=== PATIENT | female | born 1970 | race Caucasian/White ===

== ENCOUNTER 2019-07-20 14:19 | Outpatient (CLI) | payer OTHER, SELFPAY ==
--- NOTE | ~2019-07-20 | XR_ITS ---
EXAMINATION: XR hand LT min 3V EXAM DATE: 07/20/2019 14:40 INDICATION: Left hand, metacarpal pain, bruising. Initial encounter. States injury 2 weeks ago. TECHNIQUE: Left hand frontal, lateral and oblique projections obtained and reviewed. There is no phoebe or study for comparison. FINDINGS: No periosteal reaction to suggest subacute fracture. There are no acute left hand fracture s or dislocations identified. There is no subcutaneous gas. The soft tissue is unremarkable. Ulna r minus variance. IMPRESSION: No acute osseous findings. Reviewed, dictated and finalized at location G. IMPRESSION: No acute osseous findings.
== END 2019-07-20 14:20 | disposition home or self-care (01) ==
PROVIDERS: PCP Family Medicine; Visit Provider Physician Assistant
DX: M79.642 Pain in left hand (principal); S69.92XA Unspecified injury of left wrist, hand and finger(s), initial encounter
CPT/HCPCS: 73130

== ENCOUNTER 2019-11-13 11:39 | Outpatient (CLI) | payer OTHER, SELFPAY ==
--- NOTE | ~2019-11-13 | MM_ITS ---
EXAMINATION: MM screening ciara BI w rosemary HISTORY: Screening mammogram TECHNIQUE: Craniocaudal and mediolateral oblique 3-D tomosynthesis images were obtained and synthetic 2-D images were generated. Bilateral rotated lateral cc views. ..CAD analysis was submitted and inte rpreted. COMPARISON: 09/12/2018, 08/06/2017, 07/24/2016 bilateral digital screening mammogram examinations BREAST PARENCHYMAL COMPOSITION: The breasts are heterogeneously dense, which may obscure small masses . FINDINGS: There is no evidence of suspicious mass, calcification, or architectural distortion to sugg est malignancy in either breast. There has been no suspicious interval change. IMPRESSION: 1. No mammographic evidence of malignancy. 2. Recommend routine screening mammography in one year. BI-RADS Category 1: Negative Reviewed, dictated and finalized at location B.
== END 2019-11-13 11:40 | disposition home or self-care (01) ==
LOC: ANHIMG 11:42
PROVIDERS: PCP Family Medicine; Visit Provider Obstetrics & Gynecology
DX: Z12.31 Encounter for screening mammogram for malignant neoplasm of breast (principal)
CPT/HCPCS: 77063; 77067

== ENCOUNTER → 2020-07-25 10:55 | Outpatient (CLI) | payer OTHER, SELFPAY ==
--- NOTE | ~2020-07-25 | XR_ITS ---
XR foot RT min 3V DATE: 07/25/2020 11:19 INDICATION: Right foot pain TECHNIQUE: 4 views COMPARISON: None FINDINGS: There is mild osteoarthritis at the first metatarsophalangeal joint. No fracture, dislocation, periosteal reaction or bone destruction. IMPRESSION: Mild osteoarthritis at first metatarsophalangeal joint Reviewed, dictated and finalized at location A.
== END ==
PROVIDERS: PCP Family Medicine; Visit Provider Physician Assistant
DX: M79.671 Pain in right foot (principal); M19.071 Primary osteoarthritis, right ankle and foot
CPT/HCPCS: 73630

== ENCOUNTER 2020-11-29 07:06 | Outpatient (CLI) | payer OTHER, SELFPAY ==
--- NOTE | ~2020-11-29 | MM_ITS ---
EXAMINATION: MM screening ciara BI w rosemary HISTORY: Screening mammogram TECHNIQUE: Craniocaudal and mediolateral oblique 3-D tomosynthesis images were obtained and synthetic 2-D images were generated. CAD analysis was submitted and interpreted. COMPARISON: 11/13/2019, 09/12/2018, 08/06/2017, 07/24/2016, 07/12/2015 bilateral digital screening mammogra m examinations BREAST PARENCHYMAL COMPOSITION: The breasts are heterogeneously dense, which may obscure small masses . FINDINGS: There is asymmetry in the mid and outer upper right breast. Diagnostic right mammogram is r ecommended, with ultrasound. Otherwise there is no evidence of suspicious mass, calcification, or architectural distortion to sugg est malignancy in either breast. There has been no other suspicious interval change. IMPRESSION: 1. Asymmetry in the upper mid to outer right breast 2. Diagnostic right mammogram and right breast ultrasound examination are recommended BI-RADS Category 0: Incomplete: Needs additional imaging evaluation. Reviewed, dictated and finalized at location A. IMPRESSION: 1. Asymmetry in the upper mid to outer right breast 2. Diagnostic right mammogram and right breast ultrasound examination are recom mended BI-RADS Category 0: Incomplete: Needs additional imaging evaluation.
== END 2020-11-29 07:07 | disposition home or self-care (01) ==
LOC: ANHIMG 07:15
PROVIDERS: PCP Family Medicine; Visit Provider Obstetrics & Gynecology
DX: Z12.31 Encounter for screening mammogram for malignant neoplasm of breast (principal); R92.8 Other abnormal and inconclusive findings on diagnostic imaging of breast
CPT/HCPCS: 77063; 77067

== ENCOUNTER 2020-12-22 11:34 | Outpatient (CLI) | payer OTHER, SELFPAY ==
--- NOTE | ~2020-12-22 | MMUS_ITS ---
EXAMINATION: MM diagnostic ciara RT w rosemary, US breast RT complete HISTORY: Right breast mammographic asymmetry TECHNIQUE: Additional 3-D tomosynthesis images of the right breast were performed and synthetic 2-D i mages were generated. CAD analysis was submitted and interpreted. High resolution complete right ana st ultrasound including all 4 quadrants and subareolar are was performed. COMPARISON: 11/29/2020 bilateral screening mammogram FINDINGS: MAMMOGRAPHIC FINDINGS: No reproducible mass or architectural distortion, malignant calcification, skin thickening or retract ion is detected. ULTRASOUND: No suspicious mass or shadowing or other significant sonographic finding of the right breast is detec dinora. IMPRESSION: 1. No mammographic evidence of malignancy 2. Routine mammographic screening is recommended. BI-RADS Category 1: Negative Reviewed, dictated and finalized at location A. P MIXER IMPRESSION: 1. No mammographic evidence of malignancy 2. Routine mammographic screening is recommended. BI-RADS Category 1: Negative
== END 2020-12-22 11:35 | disposition home or self-care (01) ==
LOC: ANHIMG 11:35
PROVIDERS: PCP Family Medicine; Visit Provider Obstetrics & Gynecology
DX: R92.2 Inconclusive mammogram (principal)
CPT/HCPCS: 76641; 77061; 77065; G0279

== ENCOUNTER 2022-01-20 10:46 | Outpatient (CLI) | payer OTHER, SELFPAY ==
--- NOTE | ~2022-01-20 | MM_ITS ---
EXAMINATION: MM screening ciara BI w rosemary HISTORY: Screening TECHNIQUE: Craniocaudal and mediolateral oblique 3-D tomosynthesis images were obtained and synthetic 2-D images were generated. CAD analysis was submitted and interpreted. COMPARISON: Comparison to multiple prior studies sequentially, with oldest reviewed study dated 07/24. BREAST PARENCHYMAL COMPOSITION: The breasts are heterogeneously dense, which may obscure small masses . FINDINGS: There is no evidence of suspicious mass, calcification, or architectural distortion to sugg est malignancy in either breast. There has been no suspicious interval change. IMPRESSION: 1. No mammographic evidence of malignancy. 2. Recommend routine screening mammography in one year. BI-RADS Category 1: Negative Reviewed, dictated and finalized at location B. 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
== END 2022-01-20 10:47 | disposition home or self-care (01) ==
LOC: ANHIMG 10:49
PROVIDERS: PCP Family Medicine; Visit Provider Family Medicine
DX: Z12.31 Encounter for screening mammogram for malignant neoplasm of breast (principal)
CPT/HCPCS: 77063; 77067

== ENCOUNTER → 2022-05-03 12:54 | Outpatient (CLI) | payer OTHER, SELFPAY ==
--- NOTE | ~2022-05-03 | US_ITS ---
EXAMINATION: US pelvic complete w TV DATE: 05/03/2022 13:30 INDICATION: Postmenopausal bleeding TECHNIQUE: Multiple transabdominal and endovaginal sonographic images of the pelvis were obtained. COMPARISON: None. FINDINGS: The uterus measures 7.2 x 3.5 x 4.8 cm. A 9 mm mildly hyperechoic area of the uterine fundu s has the appearance of an intramural fibroid. The endometrial complex measures 5 mm. The left ovary is not visualized however no left adnexal abnormality is seen. The right ovary measures 2.5 x 0.9 x 1 .8 cm. There is normal vascular flow in the right ovary. There is no free fluid in the pelvis. IMPRESSION: 1. No sonographic correlate for the patient's symptoms. Reviewed, dictated and finalized at location L.
== END ==
PROVIDERS: PCP Family Medicine; Visit Provider Obstetrics & Gynecology
DX: N95.0 Postmenopausal bleeding (principal)
CPT/HCPCS: 76830; 76856

== ENCOUNTER 2023-05-16 07:26 | Outpatient (CLI) | payer OTHER, SELFPAY ==
--- NOTE | ~2023-05-16 | MM_ITS ---
EXAMINATION: MM screening ciara BI w rosemary HISTORY: Screening TECHNIQUE: Craniocaudal and mediolateral oblique 3-D tomosynthesis images were obtained and synthetic 2-D images were generated. CAD analysis was submitted and interpreted. COMPARISON: Comparison to multiple prior studies sequentially, with oldest reviewed study dated 08/06. BREAST PARENCHYMAL COMPOSITION: Dense: The breasts are heterogeneously dense, which may obscure small masses FINDINGS: There is no evidence of suspicious mass, calcification, or architectural distortion to sugg est malignancy in either breast. There has been no suspicious interval change. IMPRESSION: 1. No mammographic evidence of malignancy. 2. Recommend routine screening mammography in one year. BI-RADS Category 1: Negative Reviewed, dictated and finalized at location A.
== END 2023-05-16 07:27 | disposition home or self-care (01) ==
PROVIDERS: PCP Family Medicine; Visit Provider Obstetrics & Gynecology
DX: Z12.31 Encounter for screening mammogram for malignant neoplasm of breast (principal)
CPT/HCPCS: 77063; 77067

== ENCOUNTER 2024-05-19 07:26 | Outpatient (CLI) | payer OTHER, SELFPAY ==
--- NOTE | ~2024-05-19 | MM_ITS ---
EXAMINATION: MM screening ciara BI w rosemary HISTORY: Screening TECHNIQUE: Craniocaudal and mediolateral oblique 3-D tomosynthesis images were obtained and synthetic 2-D images were generated. CAD analysis was submitted and interpreted. COMPARISON: Comparison to multiple prior studies sequentially, with oldest reviewed study dated 03/2018. BREAST PARENCHYMAL COMPOSITION: Dense: The breasts are heterogeneously dense, which may obscure small masses FINDINGS: There is no evidence of suspicious mass, calcification, or architectural distortion to sugg est malignancy in either breast. There has been no suspicious interval change. IMPRESSION: 1. No mammographic evidence of malignancy. 2. Recommend routine screening mammography in one year. BI-RADS Category 1: Negative Reviewed, dictated and finalized at location A.
--- OUTSIDE RECORDS SUMMARY | 2024-05-19 07:30 | XMS_ITS | Data Portability ---
Author Organization [facility] Address [address] [place] [address] Assessment No assessment recorded. Plan of Treatment Reminders Order Date Submit Date Provider Last Modified By Organization Details Last Modified Time Details Appointments None recorded. Lab estradiol , serum 2017 [facility], [address], [place], [address], 8 07:58:07 FSH (follicle -stimulat ing hormone), serum 2017 [facility], [address], [place], [address], 8 07:17:18 testoster one, total, serum 2017 [facility], [address], [place], [address], 8 07:17:17 progester one, serum 2017 [facility], [address], [place], [address], 8 07:17:18 pap, IG + HPV, cervical 2017 [facility], [address], [address], [place], [address], 8 14:13:36 urinalysi s, dipstick 2017 [email or web address] In-Office Order, Internal Use Only DO Not Attach Compendium DO Not Attach Compendium, Do Not Delete/merge, [id number] 8 16:06:37 Referral None recorded. Procedures None recorded. Surgeries None recorded. Imaging MAMMO, screening , bilateral 2017 [facility], [address], [address], [address], 9 10:52:14 Medication Orders Duavee 0.45 mg-20 mg tablet 2017 [facility] [place], [address], 8 15:41:55 multivita min tablet 2017 INTERFACE [facility] [address] [place], [address], 8 15:45:26 Calcium with Vitamin D 600 mg-10 mcg (400 unit) tablet 2017 INTERFACE [facility] [address] [place], [address], 8 15:45:46 Patient TargetsNo targets recorded. Patient Instructions Encounter Date Encounter Id Patient Instructions Last Modified By Organization Details Last Modified Time 12/05/2017 [id number] mammogram: about this test max Not available 12/05/2017 16:06:37 Pap done today. Will check hormones for c/o hair loss. Start Duavee for hot flashes. [email or web address] Not available 12/05/2017 17:06:34 Reason for Referral None Reported. Results Created Date Observation Date Name Description Value Unit Range Abnormal Flag Note LastModifiedBy Organization Detail LastModifiedTime 12/06/19 18 12/05/2017 urina lysis , dipst ick Leukocytes Negati ve Not Available In-Office Order Internal Use Only DO Not Attach Compendium DO Not Attach Compendium, Do Not Delete/merge, [id number] 12/05/2017 15:54:56 12/06/19 18 12/05/2017 urina lysis , dipst ick Nitrite negati ve Not Available In-Office Order Internal Use Only DO Not Attach Compendium DO Not Attach Compendium, Do Not Delete/merge, [id number] 12/05/2017 15:54:56 12/06/19 18 12/05/2017 urina lysis , dipst ick Urobilinogen .2 Not Available In-Of fice Order Internal Use Only DO Not Attach Compendium DO Not Attach Compendium, Do Not Delete/merge, [id number] 12/05/2017 15:54:56 12/06/19 18 12/05/2017 urina lysis , dipst ick Protein Negati ve Not Available In-Office Order Internal Use Only DO Not Attach Compendium DO Not Attach Compendium, Do Not Delete/merge, [id number] 12/05/2017 15:54:56 12/06/19 18 12/05/2017 urina lysis , dipst ick pH 6.0 Not Available In-Office Order Internal Use Only DO Not Attach Compendium DO Not Attach Compendium, Do Not Delete/merge, [id number] 12/05/2017 15:54:56 12/06/19 18 12/05/2017 urina lysis , dipst ick Blood Negati ve Not Available In-Office Order Internal Use Only DO Not Attach Compendium DO Not Attach Compendium, Do Not Delete/merge, [id number] 12/05/2017 15:54:56 12/06/19 18 12/05/2017 urina lysis , dipst ick Specific [place] 1.005 Not Available In-Off ice Order Internal Use Only DO Not Attach Compendium DO Not Attach Compendium, Do Not Delete/merge, [id number] 12/05/2017 15:54:56 12/06/19 18 12/05/2017 urina lysis , dipst ick Ketone Negati ve Not Available In-Office Order Internal Use Only DO Not Attach Compendium DO Not Attach Compendium, Do Not Delete/merge, [id number] 12/05/2017 15:54:56 12/06/19 18 12/05/2017 urina lysis , dipst ick Bilirubin Negati ve Not Available In-Office Order Internal Use Only DO Not Attach Compendium DO Not Attach Compendium, Do Not Delete/merge, [id number] 12/05/2017 15:54:56 12/06/19 18 12/05/2017 urina lysis , dipst ick Glucose Negati ve Not Available In-Office Order Internal Use Only DO Not Attach Compendium DO Not Attach Compendium, Do Not Delete/merge, [id number] 12/05/2017 15:54:56 12/06/19 18 12/06/2017 testo stero ne, total , serum testosterone , serum 9 NG/dL 8-48 Not Available [facility] ([facility]) [address] [facility], [place], [address], 12/06/2017 07:17:17 12/06/19 18 12/06/2017 FSH (foll icle- stimu latin g hormo ne), serum FSH 24.7 mIU/m L Adult Femal e: Folli cular phase 3.5 - 12.5 Ovula tion phase 4.7 - 21.5 Lutea l phase 1.7 - 7.7 Postm enopa usal 25.8 - 134.8 Not Available [facility] ([facility]) [address] [facility], [place], [address], 12/06/2017 07:17:18 12/06/19 18 12/06/2017 proge stero ne, serum progesterone 0.3 NG/mL Folli cular phase 0.1 - 0.9 Lutea l phase 1.8 - 23.9 Ovula tion phase 0.1 - 12.0 Pregn ant First trime ster 11.0 - 44.3 Secon d trime ster 25.4 - 83.3 Third trime ster 58.7 - 214.0 Postm enopa usal 0.0 - 0.1 Not Available [facility] ([facility]) [address] [facility], [place], [address], 12/06/2017 07:17:18 12/06/19 18 12/09/2017 pap, IG + HPV, cervi lj HPV aptima Negati ve negati ve This test detec ts fourt een high- risk HPV types (16/1 8/31/ 33/35 /39/4 5/ 51/52 /56/5 8/59/ 66/68 ) witho ut diffe renti ation . Not Available [facility] ([facility]) [address] [place], [address], 12/10/2017 14:13:36 12/06/19 18 12/10/2017 pap, IG + HPV, cervi lj diagnosis: Nikia carpenter abnormal EPITH ELIAL CELL ABNOR MALIT Y. ATYPI LJ SQUAM OUS CELLS OF UNDET ERMIN ED SIGNI FICAN CE. Not Available [facility] ([facility]) [address] [place], [address], 12/10/2017 14:13:36 12/06/19 18 12/10/2017 pap, IG + HPV, cervi lj recommendati on: Nikia carpenter abnormal Sugge st follo w up as clini eloy appro priat e. Not Available [facility] ([facility]) [address] [facility], [place], [address], 12/10/2017 14:13:36 12/06/19 18 12/10/2017 pap, IG + HPV, cervi lj specimen adequacy: Nikia carpenter Satis facto ry for evalu ation . Endoc ervic al and/o r squam ous metap lasti c cells (endo cervi lj compo nent) are prese nt. Not Available [facility] ([facility]) [address] [facility], [place], [address], 12/10/2017 14:13:36 12/06/19 18 12/10/2017 pap, IG + HPV, cervi lj clinician provided ICD10: Nikia carpenter Z01.4 19 Z20.2 Not Available [facility] ([facility]) [address] [place], [address], 12/10/2017 14:13:36 12/06/19 18 12/10/2017 pap, IG + HPV, cervi lj performed by: Nikia Novoa ws, Cytot echno logis t (ASCP ) Not Available [facility] ([facility]) [address] [place], [address], 12/10/2017 14:13:36 12/06/19 18 12/10/2017 pap, IG + HPV, cervi lj electronical ly signed by: Nikia erickson MD, Patho logis t Not Available [facility] ([facility]) [address] [place], [address], 12/10/2017 14:13:36 12/06/19 18 12/10/2017 pap, IG + HPV, cervi lj . . Not Available [facility] ([facility]) [address] [place], [address], 12/10/2017 14:13:36 12/06/19 18 12/10/2017 pap, IG + HPV, cervi lj pathologist provided ICD10: Nikia carpenter R87.6 10 Not Available [facility] ([facility]) [address] [place], [address], 12/10/2017 14:13:36 12/06/19 18 12/10/2017 pap, IG + HPV, cervi lj note: Nikia carpenter The Pap smear is a scree randal test desig ruben to aid in the detec tion of arya ligna nt and malig nant condi tions of the uteri ne cervi x. It is not a diagn ostic proce dure and shoul d not be used as the sole means of detec ting cervi lj cance r. Both false -posi tive and false -nega tive repor ts do occur . Not Available [facility] ([facility]) [address] [place], [address], 12/10/2017 14:13:36 12/06/19 18 12/10/2017 pap, IG + HPV, cervi lj test methodology: Nikia carpenter This liqui d based ThinP rep(R ) pap test was scree ruben with the use of an image guide d syste m. Not Available [facility] ([facility]) [address], [place], [address], 12/10/2017 14:13:36 12/31/19 18 12/31/2017 estra diol, serum estradiol 618 pg/mL high Refer ence Range Folli cular Phase : 19-14 4 Mid-C ycle: 64-35 7 Lutea l Phase : 56-21 4 Postm enopa usal: < or = 31 Refer ence range estab lishe d on post- puber mary patie nt popul ation . No pre-p ubert al refer ence range estab lishe d using this assay . For any patie nts for whom low Estra diol level s are antic ipate d (e.g. males , pre-p ubert al child jose and hypog onada l/pos t-men opaus al femal es), the [facility] t[facility] Estra diol, Ultra sensi tive, LCMSM S assay is recom thania d (orde r code 57164 ). Pleas e note: patie nts being treat ed with the drug fulve stran t (Fasl odex( R)) have demon strat ed signi fican t inter feren ce in immun oassa y metho ds for estra diol measu remen t. The cross react ivity could lead to false ly eleva dinora estra diol test resul ts leadi ng to an inapp ropri ate clini lj asses sment of estro gen statu s. [facility] order code [id number] -Estr adiol , Ultra sensi tive LC/MS /MS demon strat es negli gible cross react ivity with fulve stran t. Not Available [facility] [address], [place], [address], 12/31/2017 07:58:07 09/13/19 19 09/12/2018 MAMMO , scree randal, bilat eral No observ ation record ed. [facility] [address], [place], [address], 09/14/2018 09:12:05 12/14/19 20 11/13/2019 MAMMO , scree randal, bilat eral No observ ation record ed. [facility] Not Available 2019 17:21:12 11/30/19 21 11/29/2020 MAMMO , scree randal, bilat eral No observ ation record ed. [address] [place] [address], [address], 12/05/2020 12:16:12 12/23/19 21 12/22/2020 MAMMO , diagn ostic , digit al, unila teral No observ ation record ed. [address], [address], 01/05/2021 12:34:01 Result Notes None recorded. Problems No Known Problems Procedures Surgical History Date Name Laterality Status Provider Name and Address Organization Details Recorded Time 8 Most Recent Mammogram completed Jessica Arora MA [facility] 12/05/2017 15:13:19 4 Date of Last Pap Smear completed FRANK Chan [facility] 12/05/2017 15:11:35 9 Ovarian Cystectomy completed FRANK Chan [facility] 12/05/2017 15:20:39 Imaging Results Imaging Date Name Status LastModified by [facility] Details LastModified Time 09/12/2018 MAMMO, screening, bilateral completed [facility]) [address] [place] [address], [address], 09/14/2018 09:12:05 11/13/2019 MAMMO, screening, bilateral completed [facility] Information not available 12/14/2019 17:21:12 11/29/2020 MAMMO, screening, bilateral completed [address], [address], 12/05/2020 12:16:12 12/22/2020 MAMMO, diagnostic, digital, unilateral completed [address] [place], [address], 01/05/2021 12:34:01 Procedure Notes None recorded. Medical Equipment None Reported. Allergies No known drug allergies Medications Name Sig Start Date Stop Date Status Note LastModified by Organization Details LastModified Time multivitamin tablet Take 1 tablet every day by oral route. 2017 active Not Available Not Available Not Avai lable valacyclovir 1 gram tablet active Not Available Not Available Not Available estradiol-noret hindrone acet 1 mg-0.5 mg tablet TAKE 1 TABLET BY MOUTH ONCE DAILY active Not Available Not Available No t Available Euthyrox 100 mcg tablet active Not Available Not Available N ot Available amoxicillin 875 mg tablet active Not Available Not Available No t Available ciprofloxacin 0.3 % eye drops active Not Available Not Availa ble Not Available levothyroxine 112 mcg tablet Take 1 tablet every day by oral route. active Not Available Not Available No t Available estradiol-noret hindrone acet 0.5 mg-0.1 mg tablet active Not Available Not Available Not Available Calcium with Vitamin D 600 mg-10 mcg (400 unit) tablet Take 1 tablet twice a day by oral route. 2017 active Not Available Not Available Not Avai lable Duavee 0.45 mg-20 mg tablet TAKE 1 TABLET BY MOUTH ONCE DAILY active Not Available Not Available No t Available Vitals Date Recorded Body height Body mass index (BMI) Body weight Systolic blood pressure Diastolic blood pressure Provider Name and Address Organization Details Last Updated DateTime 12/05/2017 167.64 cm 7.9 kg/m2 28812.03 g 116 mm[Hg] 62 mm[Hg] Jessica Arora MA [facility] 8 15:15:46 Social History Question Answer Notes LastModified by Organizat ion Details LastModified Time Tobacco Smoking Status Never Smoker Not Available [facility] 12/15/2019 03:43:26 Do You Have An Advance Directive? No [id number] Information not available 12/15/2019 What Is Your Level Of Alcohol Consumption? Occasional [id number] Information not available 12/15/2019 Is Blood Transfusion Acceptable In An Emergency? No [id number] Information not available 12/15/2019 What Is Your Level Of Caffeine Consumption? Moderate [id number] Information not available 12/15/2019 How Much Tobacco Do You Chew? None [id number] Information not available 12/15/2019 Are You Currently Employed? Yes [id number] Information not available 12/15/2019 What Type Of Diet Are You Following? REGULAR [id number] Information not available 12/15/2019 Which Illicit Or Recreational Drugs Have You Used? 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 With Others Information not available 12/05/2017 What Was The Date Of Your Most Recent Tobacco Screening? 12/05/2017 [id number] Information not available 12/15/2019 How Many Children Do You Have? 3 [id number] Information not available 12/15/2019 Performs Monthly Self-breast Exam? No Pt Given Info On Self Breast Exams, Cb-rma Information not available 12/05/2017 Do You Use Protection During Sex? No [id number] Information not available 12/15/2019 What Is Your Relationship Status? [id number] Information not available 12/15/2019 Seat Belts Used Routinely Yes Information not available 12/05/2017 Are You Sexually Active? Yes [id number] Information not available 12/15/2019 General Stress Level High [email or web address] Information not available 12/05/2017 Do You Use Sunscreen Routinely? Yes [id number] Information not available 12/15/2019 Sex: Unknown Functional Status Question Answer Note LastModified by Organizat ion Details LastModified Time What is your exercise level? Occasional [id number] Information not available 12/15/2019 Mental Status None recorded. Family History Relationship Description Onset Age of this Age Resolved Age Notes LastModified by Organization Details LastModified Time Paternal Aunt Malignant tumor of breast 38 Not available 12/05 15:16:42 Father Diabetes mellitus HTN, Type II diabet ic, cb-rma Not available 12/05/2017 15:17:23 Mother Rheumatoid arthritis HTN Not available 12/05 15:17:53 Medical History Condition Response High Blood Pressure N Breast Cancer N Kidney or Bladder Problems N Thyroid Problems Y Depression N Blood Clots N Lung Disease N GI Problems N Breast Problem N Eating Disorder N Anemia N Anesthesia Complications N Headaches/Migraines N Anxiety Disorder N Diabetes N Ovarian Cancer N Muscle, Joint, or Bone Problems N Blood Transfusions N Seizures/Epilepsy N Polyps N Infertility N Asthma N Endometriosis N High Cholesterol Y Hepatitis N Liver Disease N Heart Disease N Pre-Eclampsia N Osteoporosis N Gynecological History Statement/Question Response Abnormal Pap N Flow Moderate STIs/STDs N HPV Vaccine N Duration of Flow (days) 14 Most Recent Mammogram 08/06/2017 Age at Menarche 13 Current Control Method Partner Vas ectomy Age at First Child 25 Frequency of Cycle (Q days) 36 Sexually Active? Y Menses Monthly Y Date of Last Pap Smear 02/11/2013 Sexual Problems? N LMP Approximate Obstetrics History GPAL:G 3 P 2 1 0 3 Type Value Multiple Births 0 Full Term 2 Induced 0 Spontaneous 0 Premature 1 Living 3 Ectopics 0 Total 3 Past Encounters Encounter ID Performer Location Encounter Start Date Encounter Closed Date Diagnosis/Indication Diagnosis SNOMED-CT Code Diagnosis ICD10 Code Diagnosis Note [id number] Domingo Francis Myranda (ENDOSCOPY TECHNICIAN) [address] [place] [phone] 12/05/2017 14:49:14 12/05/2017 17:27:11 Gynecologic examination 01471786 Z01.419 Screening mammography 24 139193 Z12.31 Exposure t o sexually transmissible disorder 047327582 Z20.2 Perimenopausal state 516 8876575 68841 Z78.0 Health Concerns Section Related Observation LastModified by Organization Detai ls LastModified Time None Recorded Concern Status LastModified by Organization Details LastModified Time None Recorded Advance Directives Directive N: Payers Encounter Date Sequence Insurance Name Policy Number Policy Ivan Covered Member ID Ivan Member ID Guarantor Name 12/05/2017 1 [employer] [id number] Sheba Pleitez [id number] Sheba Pleitez Notes Date Note Type Note Provider Name and Address Organization Details Recorded Time 12/05/2017 text/html Annual GYNReport ed bypatient.History: no gynecologic complaints Menstrual cycle:Normal menses Urinary symptoms:No hematuria; No incontinence Vulva:No genital lesion Vagina:Normal vaginal discharge Breast:No breast pain; No breast lump; No nipple discharge Current Contraception:Part ner had vasectomy Sexual complaints:No sexual complaints; No pain during intercourse; Normal libido Menopausal Symptoms:Normal vaginal lubrication;Hot flashes; +hair loss Psychological symptoms:No depression; No anxiety; No PMDD Preventive measures:Encourage self breast examination; Encourage regular exercise; Encourage no tobacco use; Encourage regular mammograms starting age 40; Followed with Q3 year pap smear and high risk HPV typing 47 yo CF here for annual WWE. No h/o abnormal paps. She is doing well with c/o hair loss. Had TSH checked recently. Domingo garza, [place] - [facility] 12/05/2017 17:07:35 OBGyn Episode No OBEpisode recorded.
== END 2024-05-19 07:27 | disposition home or self-care (01) ==
LOC: ANHIMG 07:28
PROVIDERS: PCP Family Medicine; Visit Provider Obstetrics & Gynecology
DX: Z12.31 Encounter for screening mammogram for malignant neoplasm of breast (principal)
CPT/HCPCS: 77063; 77067

== ENCOUNTER 2024-07-24 07:18 | Outpatient (CLI) | payer OTHER, SELFPAY ==
--- NOTE | ~2024-07-24 | DEXA_ITS ---
Bone Density Report Name: NICOLAS GUIDO Age: 54 Sex: Female Ethnicity: White Date of : 1970 Indication: postmenopausal; screening for osteoporosis; Referring Provider: Kvng Erickson Study: Bone densitometry was performed. Exam Date: July 24, 2024 Accession number: [id number] Bone Density: Region BMD T-score Z-score Classification AP Spine(L1-L4) 0.955 -0.8 0.3 Normal Femoral Neck (Left) 0.729 -1.1 0.0 Osteopenia Total Hip (Left) 0.962 0.2 0.9 Normal Femoral Neck (Right) 0.790 -0.5 0.6 Normal Total Hip (Right) 0.927 -0.1 0.6 Normal Femoral Neck Mean 0.759 -0.8 0.3 Normal Total Hip Mean 0.944 0.0 0.8 Normal World Health Organization criteria for BMD impression classify patients as: Normal (T-score at or above -1.0), Osteopenia (T-score between -1.0 and -2.5), or Osteoporosis (T-score at or below -2.5). Clinical Information Provided by Patient: Has used the following medications: Vitamin D, Calcium Patient maximum height was 66 Menopause Age: 52 Drinks caffeinated beverages Onset of menses at age 10 Number of children 2 Impression: The patient has low bone mass, based on the Left Femoral Neck T-score. Discussion: BONE DENSITY IS LOW AT ONE OR MORE SKELETAL SITES. This patient's lowest T-score is low at one or more skeletal sites. It meets the World Health Organization's (WHO) criteria for ?low bone mass? (T-score between -1.0 and -2.5). The patient's 10-year risk of fracture as calculated by FRAX is less than the threshold where pharmacological therapy is recommended by the National Osteoporosis Foundation (NOF). However, all treatment decisions require clinical judgment and consideration of individual patient factors, including patient preferences, comorbidities, previous drug use, risk factors not captured in the FRAX model (e.g., frailty, falls, vitamin D deficiency, increased bone turnover, interval significant decline in bone density) and possible under or overestimation of fracture risk by FRAX. The patient should follow a healthful lifestyle (good nutrition with adequate calcium and vitamin D, and appropriate weight-bearing exercise). Follow-Up: Consider repeating this study in 2 to 3 years to reassess this patient's status, or sooner if there is some new clinical indication. Reported by: JESSICA on 07/24/2024 7:36:00 AM. Reviewed, dictated and finalized at location A.
--- OUTSIDE RECORDS SUMMARY | 2024-07-24 07:21 | XMS_ITS | Data Portability ---
Author Organization [facility] Address [address] [place] [address] Assessment No assessment recorded. Plan of Treatment Reminders Order Date Submit Date Provider Last Modified By Organization Details Last Modified Time Details Appointments None recorded. Lab estradiol , serum 2017 [facility], [address], [place], [address], 8 07:58:07 FSH (follicle -stimulat ing hormone), serum 2017 [facility], [address], [place], [address], 8 07:17:18 testoster one, total, serum 2017 [facility], [address], [place], [address], 8 07:17:17 progester one, serum 2017 [facility], [address], [place], [address], 8 07:17:18 pap, IG + HPV, cervical 2017 [facility], [address], [address], [place], [address], 8 14:13:36 urinalysi s, dipstick 2017 [facility] In-Office Order, Internal Use Only DO Not Attach Compendium DO Not Attach Compendium, Do Not Delete/merge, [id number] 8 16:06:37 Referral None recorded. Procedures None recorded. Surgeries None recorded. Imaging MAMMO, screening , bilateral 2017 [facility], [address], [address], [address], 9 10:52:14 Medication Orders Duavee 0.45 mg-20 mg tablet 2017 [facility] [address] [place], [address], 8 15:41:55 multivita min tablet 2017 [facility] [address] [place], [address], 8 15:45:26 Calcium with Vitamin D 600 mg-10 mcg (400 unit) tablet 2017 [facility] [address] [place], [address], 8 15:45:46 Patient TargetsNo targets recorded. Patient Instructions Encounter Date Encounter Id Patient Instructions Last Modified By Organization Details Last Modified Time 12/05/2017 [id number] mammogram: about this test max Not available [...] DO Not Attach Compendium, Do Not Delete/merge, [id number] 12/05/2017 15:54:56 12/06/19 18 12/05/2017 urina lysis , dipst ick Nitrite negati ve Not Available In-Office Order Internal Use Only DO Not Attach Compendium DO Not Attach Compendium, Do Not Delete/merge, [id number] 12/05/2017 15:54:56 12/06/19 18 12/05/2017 urina lysis , dipst ick Urobilinogen .2 Not Available In-Of fice Order Internal Use Only DO Not Attach Compendium DO Not Attach Compendium, Do Not Delete/merge, [id number] 12/05/2017 15:54:56 12/06/19 18 12/05/2017 urina lysis , dipst ick Protein Negati ve Not Available In-Office Order Internal Use Only DO Not Attach Compendium DO Not Attach Compendium, Do Not Delete/merge, [id number] 12/05/2017 15:54:56 12/06/19 18 12/05/2017 urina lysis , dipst ick pH 6.0 Not Available In-Office Order Internal Use Only DO Not Attach Compendium DO Not Attach Compendium, Do Not Delete/merge, [id number] 12/05/2017 15:54:56 12/06/19 18 12/05/2017 urina lysis , dipst ick Blood Negati ve Not Available In-Office Order Internal Use Only DO Not Attach Compendium DO Not Attach Compendium, Do Not Delete/merge, [id number] 12/05/2017 15:54:56 12/06/19 18 12/05/2017 urina lysis , dipst ick Specific [place] 1.005 Not Available In-Off ice Order Internal Use Only DO Not Attach Compendium DO Not Attach Compendium, Do Not Delete/merge, [id number] 12/05/2017 15:54:56 12/06/19 18 12/05/2017 urina lysis , dipst ick Ketone Negati ve Not Available In-Office Order Internal Use Only DO Not Attach Compendium DO Not Attach Compendium, Do Not Delete/merge, [id number] 12/05/2017 15:54:56 12/06/19 18 12/05/2017 urina lysis , dipst ick Bilirubin Negati ve Not Available In-Office Order Internal Use Only DO Not Attach Compendium DO Not Attach Compendium, Do Not Delete/merge, [id number] 12/05/2017 15:54:56 12/06/19 18 12/05/2017 urina lysis , dipst ick Glucose Negati ve Not Available In-Office Order Internal Use Only DO Not Attach Compendium DO Not Attach Compendium, Do Not Delete/merge, [id number] 12/05/2017 15:54:56 12/06/19 18 12/06/2017 testo stero ne, total , serum testosterone , serum 9 NG/dL 8-48 Not Available [facility] ([facility]) [address] [facility], [place], [address], 12/06/2017 07:17:17 12/06/19 18 12/06/2017 FSH (foll icle- stimu latin g hormo ne), serum FSH 24.7 mIU/m L Adult Femal e: Folli cular phase 3.5 - 12.5 Ovula tion phase 4.7 - 21.5 Lutea l phase 1.7 - 7.7 Postm enopa usal 25.8 - 134.8 Not Available [facility] ([facility]) [address] [facility], [place], [address], 12/06/2017 07:17:18 12/06/19 18 12/06/2017 proge stero ne, serum progesterone 0.3 NG/mL Folli cular phase 0.1 - 0.9 Lutea l phase 1.8 - 23.9 Ovula tion phase 0.1 - 12.0 Pregn ant First trime ster 11.0 - 44.3 Secon d trime ster 25.4 - 83.3 Third trime ster 58.7 - 214.0 Postm enopa usal 0.0 - 0.1 Not Available [facility] ([facility]) [address] [facility], [place], [address], 12/06/2017 07:17:18 12/06/19 18 12/09/2017 pap, IG + HPV, cervi lj HPV aptima Negati ve negati ve This test detec ts fourt een high- risk HPV types (16/1 8/31/ 33/35 /39/4 5/ 51/52 /56/5 8/59/ 66/68 ) witho ut diffe renti ation . Not Available [facility] ([facility]) [address] [place], [address], 12/10/2017 14:13:36 12/06/19 18 12/10/2017 pap, IG + HPV, cervi lj diagnosis: Nikia carpenter abnormal EPITH ELIAL CELL ABNOR MALIT Y. ATYPI LJ SQUAM OUS CELLS OF UNDET ERMIN ED SIGNI FICAN CE. Not Available [facility] ([facility]) [address] [place], [address], 12/10/2017 14:13:36 12/06/19 18 12/10/2017 pap, IG + HPV, cervi lj recommendati on: Nikia carpenter abnormal Sugge st follo w up as clini eloy appro priat e. Not Available [facility] ([facility]) [address] [facility], [place], [address], 12/10/2017 14:13:36 12/06/19 18 12/10/2017 pap, IG + HPV, cervi lj specimen adequacy: Nikia carpenter Satis facto ry for evalu ation . Endoc ervic al and/o r squam ous metap lasti c cells (endo cervi lj compo nent) are prese nt. Not Available [facility] ([facility]) [address] [facility], [place], [address], 12/10/2017 14:13:36 12/06/19 18 12/10/2017 pap, IG + HPV, cervi lj clinician provided ICD10: Nikia carpenter Z01.4 19 Z20.2 Not Available [facility] ([facility]) [address] [place], [address], 12/10/2017 14:13:36 12/06/19 18 12/10/2017 pap, IG + HPV, cervi lj performed by: Nikia Novoa ws, [employer]ot echn[employer] logis t (ASCP ) Not Available [facility] ([facility]) [address] [place], [address], 12/10/2017 14:13:36 12/06/19 18 12/10/2017 pap, IG + HPV, cervi lj electronical ly signed by: Nikia erickson MD, Patho logis t Not Available [facility] ([facility]) [address] [place], [address], 12/10/2017 14:13:36 12/06/19 18 12/10/2017 pap, IG + HPV, cervi lj . . Not Available [facility] ([facility]) [address] [place], [address], 12/10/2017 14:13:36 12/06/19 18 12/10/2017 pap, IG + HPV, cervi lj pathologist provided ICD10: Nikia carpenter R87.6 10 Not Available [facility] ([facility]) [address] [place], [address], 12/10/2017 14:13:36 12/06/19 18 12/10/2017 pap, IG [...] ts do occur . Not Available [facility] ([facility]) [address] [place], [address], 12/10/2017 14:13:36 12/06/19 18 12/10/2017 pap, IG + HPV, cervi lj test methodology: Nikia carpenter This liqui d based ThinP rep(R ) pap test was scree ruben with the use of an image guide d syste m. Not Available [facility] ([facility]) [address], [place], [address], 12/10/2017 14:13:36 12/31/19 18 12/31/2017 estra diol, [...] is recom thania d (orde r code 90966 ). Pleas e note: patie nts being [...] s. [facility] order code 27540 -Estr adiol , Ultra sensi tive LC/MS /MS demon strat es negli gible cross react ivity with fulve stran t. Not Available [facility] [id number], [place], [address], 12/31/2017 07:58:07 09/13/19 19 09/12/2018 MAMMO , scree randal, bilat eral No observ ation record ed. [facility]) [address], [place], [address], 09/14/2018 09:12:05 12/14/19 20 11/13/2019 MAMMO , aris tee, bilat eral No observ ation record ed. [facility] Not Available 2019 17:21:12 11/30/19 21 11/29/2020 MAMMO , aris tee, bilat eral No observ ation record ed. [facility] [address], [place], [address], 12/05/2020 12:16:12 12/23/19 21 12/22/2020 MAMMO , diagn ostic , digit al, unila teral No observ ation record ed. [facility] [address] [facility] [address], [place], [address], 01/05/2021 12:34:01 Result Notes None recorded. Problems No Known Problems Procedures Surgical History Date Name Laterality Status Provider Name and Address Organization Details Recorded Time 8 Most Recent Mammogram completed Jessica Arora MA [facility] 12/05/2017 15:13:19 4 Date of Last Pap Smear completed FRANK Chan [facility] 12/05/2017 15:11:35 9 Ovarian Cystectomy completed FRANK Chan [facility] 12/05/2017 15:20:39 Imaging Results None recorded. Procedure Notes None recorded. Medical Equipment None [...] Updated DateTime 12/05/2017 167.64 cm 7.9 kg/m2 98018.03 g 116 mm[Hg] 62 mm[Hg] Jessica Arroa [place] - [facility] 8 15:15:46 Social History Question Answer Notes LastModified by Organizat ion Details LastModified Time Tobacco Smoking Status Never Smoker Not Available [facility] 12/15/2019 03:43:26 Do You Have An Advance Directive? No [id number] Information not available 12/15/2019 Is Blood Transfusion Acceptable In An Emergency? No [id number] Information not available 12/15/2019 What Is Your Level Of Caffeine Consumption? Moderate [id number] Information not available 12/15/2019 How Much Tobacco Do You Chew? None [id number] Information not available 12/15/2019 What Type Of Diet Are You Following? REGULAR [id number] Information not available 12/15/2019 Which Illicit Or Recreational Drugs Have You Used? None [id number] Information not available 12/15/2019 Education Post Graduate Information not available 12/05/2017 Live Alone Or With Others? With Others Information not available 12/05/2017 What Was The Date Of Your Most Recent Tobacco Screening? 12/05/2017 [id number] Information not available 12/15/2019 How Many Children Do You Have? 3 [id number] Information not available 12/15/2019 Performs Monthly Self-breast Exam? No Pt Given Info On Self Breast Exams, Cb-rma Information not available 12/05/2017 Do You Use Protection During Sex? No [id number] Information not available 12/15/2019 What Is Your Relationship Status? [id number] Information not available 12/15/2019 Seat Belts Used Routinely Yes cb Information not available 12/05/2017 Are You Sexually Active? Yes [id number] Information not available 12/15/2019 General Stress Level High cb Information not available 12/05/2017 Do You Use Sunscreen Routinely? Yes [id number] Information not available 12/15/2019 Sex: Unknown Functional Status Question Answer Note LastModified by Organizat ion Details LastModified Time What is your level of alcohol consumption? Occasional [id number] Information not available 12/15/2019 Are you currently employed? 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 Occasional [id number] Information not available 12/15/2019 Mental Status None [...] SNOMED-CT Code Diagnosis ICD10 Code Diagnosis Note [id number] Domingo Francis MD [facility] ([facility]) [address] [place] [address] 12/05/2017 14:49:14 12/05/2017 17:27:11 Gynecologic examination 84376794 Z01.419 Screening mammography 24 984358 Z12.31 Exposure t o sexually transmissible disorder 846637639 Z20.2 Perimenopausal state 385 0649954 77204 Z78.0 Health Concerns Section Related Observation LastModified by Organization Detai ls LastModified Time None Recorded Concern Status LastModified by Organization Details LastModified Time None Recorded Advance Directives Directive N: Payers Insurance Date Sequence Insurance Name Policy Number Policy Ivan Covered Member ID Ivan Member ID Guarantor Name 12/05/2020 1 [employer] [id number] Sheba Pleitez [id number] Sheba Pleitez Notes Date Note Type [...] hair loss. Had TSH checked recently. Domingo Francis [place], [place] - [place] 12/05/2017 17:07:35 OBGyn Episode No OBEpisode recorded.
== END 2024-07-24 07:19 | disposition home or self-care (01) ==
LOC: CHSIMG 07:19
PROVIDERS: PCP Family Medicine; Visit Provider Obstetrics & Gynecology
DX: R29.890 Loss of height (principal); Z78.0 Asymptomatic menopausal state; M85.88 Other specified disorders of bone density and structure, other site
CPT/HCPCS: 77080